=== PATIENT | female | born 1970 ===

== ENCOUNTER 2019-01-05 09:35 | Outpatient (CLI) | payer BC ==
--- NOTE | 2019-01-05 14:58 | NM ---
3 PHASE BONE SCAN: Date: 01/05/19 HISTORY: Recent left hip arthroplasty. Left hip pain. COMPARISON: None. TECHNIQUE: Patient administered 32.4 mCi [id number] intravenously. Blood flow, blood pool, and delayed image s are submitted. FINDINGS: No abnormal uptake of the radiotracer on the blood flow images. No abnormal radiotracer localization on the blood pool images. Delayed images demonstrate asymmetric increased uptake at the stem of the right hip prosthesis. Physi ologic distribution of the radiotracer is noted. Degenerative changes in both shoulders are identifie d. There is no abnormal radiotracer localization in the left hip. IMPRESSION: 1. Increased radiotracer localization of the stem of the right hip only on the delayed images, which likely reactive. 2. Unremarkable 3 phase bone scan of the left hip. POS: [facility]
== END 2019-01-05 09:36 | disposition home or self-care (01) ==
LOC: NM 09:35
PROVIDERS: ATTEND Specialist
DX: T84.84XA Pain due to internal orthopedic prosthetic devices, implants and grafts, initial encounter (principal)
CPT/HCPCS: 78315; A9503